=== PATIENT | male | born 1940 | race Hispanic/Latino ===

== ENCOUNTER → 2019-12-18 | Outpatient (CLI) | payer MEDICARE ==
[~2019-12-18] MED LIST: ATORVASTATIN CA10 MG PO; CARVEDILOL3.125 MG PO; CENTRUM SILVER1 EAC3 PO; DHEA TABLET1 EACH PO; FUROSEMIDE40 MG PO; HYDROCHLOROTH12.5 MG PO; LISINOPRIL10 MG PO; METFORMIN HCL500 MG PO; NIASPAN500 MG PO; OMEGA 3 FISH O1 EACH PO; XARELTO20 MG PO
--- NOTE | 2019-12-18 14:12 | Diagnostic Imaging Report ---
EXAM: Renal Ultrasound INDICATION: Chronic kidney disease COMPARISON: CT abdomen and pelvis of the same day TECHNIQUE: Transverse and longitudinal images of the kidneys and bladder were obtained. FINDINGS: Right Kidney: Length: 11.2 cm Appearance: Normal echogenicity. Collecting system: No hydronephrosis Stones: None Cyst/Mass: Lower pole anechoic simple cyst measures 2.7 x 2.1 x 2.5 cm. Left Kidney: Length: 10.5 cm Appearance: Normal echogenicity. Collecting system: No hydronephrosis Stones: None Cyst/Mass: None Bladder: No mass or calculi. Bilateral ureteral jets visualized. Prevoid volume estimate of 147 cc. The prostate measures 4.0 x 3.2 x 3.6 cm with volume estimate of 24 cc. IMPRESSION: No hydronephrosis or renal calculus. Right lower pole 2.7 cm simple cyst. Signed by: Shanelle Patricio MD on 12/18/2019 2:09 PM
--- NOTE | 2019-12-18 14:23 | Diagnostic Imaging Report ---
EXAM: CT Abdomen and Pelvis WITHOUT intravenous contrast INDICATION: Chronic kidney disease, Renal mass COMPARISON: None. TECHNIQUE: Abdomen and pelvis were scanned utilizing a multidetector helical scanner from the lung base to the pubic symphysis without administration of IV contrast. Coronal and sagittal reformations were obtained. IV CONTRAST: None ORAL CONTRAST: Water COMPLICATIONS: None RADIATION DOSE: Total DLP: 519 mGy*cm Dose modulation, iterative reconstruction, and/or weight based adjustment of the mA/kV was utilized to reduce the radiation dose to as low as reasonably achievable. FINDINGS: LOWER THORAX: ICD leads partially visualized. HEPATOBILIARY: No focal hepatic lesions. No biliary ductal dilatation. The gallbladder appears unremarkable. SPLEEN: No splenomegaly. PANCREAS: No focal masses or ductal dilatation. ADRENALS: No adrenal nodules. KIDNEYS/URETERS: No hydronephrosis, stones, or solid mass lesions. 2.4 cm right lower pole exophytic cyst. PELVIC ORGANS/BLADDER: Unremarkable. PERITONEUM / RETROPERITONEUM: No free air or fluid. LYMPH NODES: No lymphadenopathy. VESSELS: Moderate atherosclerotic calcifications of the nonaneurysmal abdominal aorta and major branches. GI TRACT: Diverticulosis without CT evidence of diverticulitis. No abnormal bowel thickening. No bowel obstruction. Normal appendix. BONES AND SOFT TISSUES: No acute osseous injury. No suspicious lytic or blastic lesions. Moderate degenerative changes of the visualized spine. IMPRESSION: No acute findings in the abdomen or pelvis. Specifically, no hydronephrosis, renal calculi, or solid renal mass lesion. 2.4 cm right lower pole exophytic renal cyst. Signed by: Shanelle Patricio MD on 12/18/2019 2:20 PM
== END ==
LOC: US 12:03
PROVIDERS: ATTEND Urology
DX: N18.9 Chronic kidney disease, unspecified (principal); D41.00 Neoplasm of uncertain behavior of unspecified kidney; N28.1 Cyst of kidney, acquired
CPT/HCPCS: 74176; 76770

== ENCOUNTER 2020-05-02 18:15 | Inpatient (IN) | payer MEDICARE ==
[~2020-05-02] VITALS: Ht 162.6 cm; Wt 78.7 kg
[2020-05-02 18:42] LABS: BASOPHILS % 0.4 % (0.0-1.0); EOSINOPHILS % 0.4 % (0.0-6.0); HEMATOCRIT 42.6 % (38.2-49.6); LYMPHOCYTES # (AUTO) 0.9 (1.0-3.2); LYMPHOCYTES % 10.8 % (18.0-39.1); MEAN CORPUSCULAR HEMOGLOBIN 30.4 pg (28-32); MEAN CORPUSCULAR HGB CONC 32.9 g/dL (31-35); MEAN CORPUSCULAR VOLUME 92.4 fL (81-99); MONOCYTES # (AUTO) 0.8 (0.2-0.8); MONOCYTES % 9.2 % (4.4-11.3); NEUTROPHILS # (AUTO) 6.7 (2.1-6.9); NEUTROPHILS % 78.6 % (38.7-80.0); PLATELET COUNT 181 x10e3/uL (140-360); RED BLOOD COUNT 4.61 x10e6/uL (4.3-5.7); RED CELL DISTRIBUTION WIDTH 16.1 % (11.7-14.4)
--- NOTE | 2020-05-02 18:42 | Emergency Department Note ---
History of Present Illnes History of Present Illness Chief Complaint: Respiratory History of Present Illness This is a 79 year old male presents via ems with report of respiratory distress, per ems initial o2 saturation 87%, ems reports was wheezing on right side, was given xopenex nebs times 2 by ems, solu-medrol 125 mg iv and started on cpap by ems, on arrival pt states feels much better and is not in distress at this time, states he has had increasing sob over past 4 to 5 days with a mild cough.. 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 Any updates have been documented here. Past Medical History Recent Fever: No Clinical Suspicion of Infectio: No New/Unexplained Change in Ment: No Past Medical History: Hypertension, CHF, CAD Past Surgical History: Pacer/AICD Social History Smoking Cessation: Former smoker Alcohol Use: None Any Illegal Drug Use: No Physically hurt or threatened: No Review of Systems Review of Systems Constitutional: Reports no symptoms EENTM: Reports no symptoms Cardiovascular: Reports no symptoms Respiratory: Reports as per HPI Gastrointestinal: Reports no symptoms Genitourinary: Reports no symptoms Musculoskeletal: Reports no symptoms Integumentary: Reports no symptoms Neurological: Reports no symptoms Psychological: Reports no symptoms Endocrine: Reports no symptoms Hematological/Lymphatic: Reports no symptoms Physical Exam Related Data Allergies: Coded Allergies: No Known Allergies (Unverified , 08/06/17) Triage Vital Signs Vital Signs Date Time Temp Pulse Resp B/P (MAP) Pulse Ox O2 Delivery O2 Flow Rate FiO2 05/02/20 18:23 99.2 107 38 107/79 100 Room Air 05/02/20 18:28 5.0 Vital signs reviewed: Yes Physical Exam CONSTITUTIONAL Constitutional: Present well-developed, Present well-nourished HENT HENT: Present normocephalic, Present atraumatic, Present oropharynx clear/moist, Present nose normal HENT L/R: Present left ext ear normal, Present right ext ear normal EYES Eyes: Reports PERRL, Reports conjunctivae normal NECK Neck: Present ROM normal PULMONARY Pulmonary: Present effort normal, Present breath sounds normal; Absent respiratory distress CARDIOVASCULAR Cardiovascular: Present regular rhythm, Present heart sounds normal, Present capillary refill normal, Present normal rate GASTROINTESTINAL Abdominal: Present soft, Present nontender, Present bowel sounds normal GENITOURINARY Genitourinary: Present exam deferred SKIN Skin: Present warm, Present dry MUSCULOSKELETAL Musculoskeletal: Present ROM normal NEUROLOGICAL Neurological: Present alert, Present oriented x 3, Present no gross motor or sensory deficits PSYCHOLOGICAL Psychological: Present mood/affect normal, Present judgement normal Results Laboratory Laboratory Laboratory Tests Test 05/02/20 19:43 05/02/20 18:24 White Blood Count 8.46 x10e3/uL (4.8-10.8) Red Blood Count 4.61 x10e6/uL (4.3-5.7) Hemoglobin 14.0 g/dL (14.0-18.0) Hematocrit 42.6 % (38.2-49.6) Mean Corpuscular Volume 92.4 fL (81-99) Mean Corpuscular Hemoglobin 30.4 pg (28-32) Mean Corpuscular Hemoglobin Concent 32.9 g/dL (31-35) Red Cell Distribution Width 16.1 % (11.7-14.4) Platelet Count 181 x10e3/uL (140-360) Neutrophils (%) (Auto) 78.6 % (38.7-80.0) Lymphocytes (%) (Auto) 10.8 % (18.0-39.1) Monocytes (%) (Auto) 9.2 % (4.4-11.3) Eosinophils (%) (Auto) 0.4 % (0.0-6.0) Basophils (%) (Auto) 0.4 % (0.0-1.0) Neutrophils # (Auto) 6.7 (2.1-6.9) Lymphocytes # (Auto) 0.9 (1.0-3.2) Monocytes # (Auto) 0.8 (0.2-0.8) Eosinophils # (Auto) 0.0 (0.0-0.4) Basophils # (Auto) 0.0 (0.0-0.1) Absolute Immature Granulocyte (auto 0.05 x10e3/uL (0-0.1) Prothrombin Time 31.9 seconds (11.9-14.5) Prothromb Time International Ratio 2.85 Activated Partial Thromboplast Time 44.1 seconds (23.8-35.5) Sodium Level 134 mmol/L (136-145) Potassium Level 4.1 mmol/L (3.5-5.1) Chloride Level 100 mmol/L (98-107) Carbon Dioxide Level 17 mmol/L (22-29) Anion Gap 21.1 mmol/L (8-16) Blood Urea Nitrogen 52 mg/dL (7-26) Creatinine 2.60 mg/dL (0.72-1.25) Estimat Glomerular Filtration Rate 24 ML/MIN (60-) BUN/Creatinine Ratio 20 (6-25) Glucose Level 161 mg/dL (74-118) Calcium Level 9.5 mg/dL (8.4-10.2) Total Bilirubin 1.7 mg/dL (0.2-1.2) Aspartate Amino Transf (AST/SGOT) 48 IU/L (5-34) Alanine Aminotransferase (ALT/SGPT) 50 IU/L (0-55) Alkaline Phosphatase 135 IU/L (40-150) Creatine Kinase 78 IU/L (30-200) Creatine Kinase MB 2.40 ng/mL (0-5.0) Troponin I 0.162 ng/mL (0-0.300) B-Type Natriuretic Peptide 1742.3 pg/mL (0-100) Total Protein 7.1 g/dL (6.5-8.1) Albumin 3.2 g/dL (3.5-5.0) Globulin 3.9 g/dL (2.3-3.5) Albumin/Globulin Ratio 0.8 (0.8-2.0) Lab results reviewed: Yes Imaging Imaging results reviewed: Yes Impressions Procedure: [id number] DX/CHEST SINGLE (PORTABLE) Exam Date: 05/02/20 Exam Time: 1840 REPORT STATUS: Signed EXAMINATION: CHEST SINGLE (PORTABLE) INDICATION: Shortness of breath. COMPARISON: None FINDINGS: TUBES and LINES: Cardiac pacing device which projects over the left chest wall. LUNGS: Normal lung volumes. There are prominent interstitial lung markings throughout both lungs. No focal consolidation. PLEURA: No pleural effusion or pneumothorax. HEART AND MEDIASTINUM: The heart is enlarged. The mediastinal silhouette is otherwise within normal limits with atherosclerotic calcification of the thoracic aortic arch. BONES AND SOFT TISSUES: No acute osseous lesion. Soft tissues are unremarkable. UPPER ABDOMEN: No free air under the diaphragm. IMPRESSION: Cardiomegaly with prominent interstitial lung markings which likely represents mild interstitial pulmonary edema. Signed by: Britni Stern MD on 05/02/2020 8:15 PM Dictated By: BRITNI STERN MD 14 Transcribed By: KATIE on 05/02/202014 COPY TO: RAMIRO COLON MD~ Procedures 12 Lead ECG Interpretation ECG Interpretation : ECG: ECG 1 Auto Accessories Installer: Interpreted by ED physician Date: May 02, 2020 Time: 18:59 Rhythm: ventricular fibrillation Ectopy: frequent PVC's Rate: tachycardia BPM: 119 ST segments normal: No T waves normal: No Other findings: no other findings Clinical Impression: abnormal ECG Additional Comments ELECTRONIC VENTRICULAR PACED RHYTHM WITH PVC'S Assessment & Plan Medical Decision Making MDM pt taken off cpap and placed on oxygen via nc at 5lpb, oxygen saturation 100% cbc, cmp, ekg, cardiac enzymes, covid 19, bnp, cxr ordered to eval for myocardial infarction, pneumonia, covid 19, electrolyte abnormality, pulmonary edema. I SPOKE WITH DR WEBER AND LEFT A MESSAGE FOR DR Roselyn LAUGHLIN COVERING FOR DR NARVAEZ. Assessment & Plan Final Impression: (1) CHF (congestive heart failure) (2) SOB (shortness of breath) Depart Disposition: ADMITTED Last Vital Signs Date Time Temp Pulse Resp B/P (MAP) Pulse Ox O2 Delivery O2 Flow Rate FiO2 05/02/20 18:28 98.8 107 22 107/79 100 Nasal Cannula 5.0 Home Meds Reported Medications Furosemide (FUROSEMIDE) 40 Mg Tablet, 40 MG PO Daily, #30 TAB 08/06/17 Carvedilol (CARVEDILOL) 3.125 Mg Tablet, 3.125 MG PO BID, #60 TAB 08/06/17 Atorvastatin Calcium (ATORVASTATIN CALCIUM) 10 Mg Tablet, 10 MG PO HS, #30 TAB 04/26/14 Rivaroxaban (XARELTO) 20 Mg Tablet, 20 MG PO DAILY 04/26/14 Metformin Hcl (METFORMIN HCL) 500 Mg Tablet, 500 MG PO DAILY, #60 TAB 04/26/14 RAMIRO COLON MD May 02, 2020 18:42
[2020-05-02 18:47] LABS: INR 2.85; PROTHROMBIN TIME 31.9 seconds (11.9-14.5)
[2020-05-02 18:48] LABS: PARTIAL THROMBOPLASTIN TIME 44.1 seconds (23.8-35.5)
[2020-05-02 18:57] LABS: ALBUMIN 3.2 g/dL (3.5-5.0); ALBUMIN/GLOBULIN RATIO 0.8 (0.8-2.0); ANION GAP 21.1 mmol/L (8-16); CALCIUM 9.5 mg/dL (8.4-10.2); CREATININE, SERUM 2.6 mg/dL (0.72-1.25); POTASSIUM 4.1 mmol/L (3.5-5.1)
[2020-05-02 19:03] LABS: CREATINE KINASE MB 2.4 ng/mL (0-5.0)
--- NOTE | 2020-05-02 19:20 | NUR ---
Seen pt on bed, awake & alert. Updated regarding in patient admission for tonight for further evaluation. Pt verbalizes understanding & agreed regarding his POC at this time.
--- NOTE | 2020-05-02 20:18 | Diagnostic Imaging Report ---
EXAMINATION: CHEST SINGLE (PORTABLE) INDICATION: Shortness of breath. COMPARISON: None FINDINGS: TUBES and LINES: Cardiac pacing device which projects over the left chest wall. LUNGS: Normal lung volumes. There are prominent interstitial lung markings throughout both lungs. No focal consolidation. PLEURA: No pleural effusion or pneumothorax. HEART AND MEDIASTINUM: The heart is enlarged. The mediastinal silhouette is otherwise within normal limits with atherosclerotic calcification of the thoracic aortic arch. BONES AND SOFT TISSUES: No acute osseous lesion. Soft tissues are unremarkable. UPPER ABDOMEN: No free air under the diaphragm. IMPRESSION: Cardiomegaly with prominent interstitial lung markings which likely represents mild interstitial pulmonary edema. Signed by: Guillermo Dubose MD on 05/02/2020 8:15 PM
--- NOTE | 2020-05-02 23:32 | NUR ---
Provided more warm blanket for comfort. No further complaints made at this time. VSS
[2020-05-03 02:04] LABS: CREATINE KINASE MB 2.5 ng/mL (0-5.0)
[2020-05-03] MEDS: FUROSEMIDE INJ 10 MG/ML 4 ML VIAL IV SCH ×3 (05:00→17:30)
--- NOTE | 2020-05-03 05:24 | NUR ---
H&P cc: sob and cough HPI: 79yoM, PCP , developed SOB and cough, found to have pulmonary interstitial edema, given lasix and admitted for mgmt. COVID testing result pending. PMH: HTN, HLD, CKD3 due to DM2, Xarelto use for PAD?, GERD, Hx cigs PSHx: PPM; shoulder; knee x2 Allergies; see emr Fh/SH; ; hx cigs; Meds; see MAR ROS: no f/c/s/N/V/D/BILL/dizziness/cp/confusion/vision chanes/ v/s; revd PE tired appearing anicteric ns1s2 reduced BS; soft nt nd no e/t skin dry flat affect awake; turner labs/meds revd A/P: 79yoM AECHF- echo; diuretics; f/u renal fn; Pulmonary edema- rec'd diuretic; O2 support Acute resp failure- NC O2 support KENNY in setting of CKD3- check renal U/S CKD3 due to DM2- f/u renal U/S; hab1c/lipids; ssi Hypotension- monitor with lasix ELevated LFTs- reassess Cardiomegaly- monitor BP; f/u echo HLD- statin Prop: cont AC; add pepcid dispo: f/u labs and echo; f/u cardio recs. f/u COVID testing; Adan Brasher MD, PhD.
[2020-05-03] MEDS ORDERED: DOCUSATE SODIUM 100 MG CAP PO PRN (05:30)
[2020-05-03] MEDS ORDERED: ONDANSETRON HCL INJ 2MG/ML 2ML 2 MG/ML VIAL IV PRN (05:30)
[2020-05-03] MEDS ORDERED: ACETAMINOPHEN 325 MG TAB PO PRN (05:30)
[2020-05-03] MEDS ORDERED: ZOLPIDEM TARTRATE 5 MG TAB PO PRN (05:30)
[2020-05-03 06:15] LABS: BASOPHILS % 0.1 % (0.0-1.0); HEMATOCRIT 37.1 % (38.2-49.6); HEMOGLOBIN 13.5 g/dL (14.0-18.0); LYMPHOCYTES # (AUTO) 0.5 (1.0-3.2); LYMPHOCYTES % 6.3 % (18.0-39.1); MEAN CORPUSCULAR HGB CONC 36.4 g/dL (31-35); MEAN CORPUSCULAR VOLUME 93.5 fL (81-99); MONOCYTES # (AUTO) 0.3 (0.2-0.8); MONOCYTES % 3.2 % (4.4-11.3); NEUTROPHILS # (AUTO) 7.8 (2.1-6.9); NEUTROPHILS % 89.9 % (38.7-80.0); PLATELET COUNT 132 x10e3/uL (140-360); RED BLOOD COUNT 3.97 x10e6/uL (4.3-5.7); RED CELL DISTRIBUTION WIDTH 17.5 % (11.7-14.4)
[2020-05-03 06:58] LABS: ANION GAP 16.6 mmol/L (8-16); CALCIUM 9.1 mg/dL (8.4-10.2); CREATININE, SERUM 2.35 mg/dL (0.72-1.25); POTASSIUM 3.6 mmol/L (3.5-5.1)
--- NOTE | 2020-05-03 07:02 | NUR ---
Handoff report given to Joesph HOLLOWAY
[2020-05-03 07:18] LABS: CHOL/HDL RATIO 3.9 (3.9-4.7); MAGNESIUM 1.5 MG/DL (1.3-2.1)
[2020-05-03 07:28] LABS: ALBUMIN 2.9 g/dL (3.5-5.0)
[2020-05-03] MEDS: FAMOTIDINE 20 MG TAB PO SCH ×2 (09:31→16:30)
[2020-05-03] MEDS: RIVAROXABAN 20 MG TABLET PO SCH (09:31)
[2020-05-03 10:15] VITALS: BP 92/75
--- NOTE | 2020-05-03 10:15 | NUR ---
PATIENT RECEIVED FROM ER PER WHEEL CHAIR, ASSISTED IN BED. ALERT AND VERBALLY RESPONSIVE. DENIED PAIN AT THIS TIME. SKIN WARM AND DRY TO TOUCH, RESPIRATION EVEN AND UNLABORED. ABDOMEN SOFT AND ROUND. O2 IN PLACE VIA N/C, TELEMETRY BOX [address] BED IN LOWER POSITION, CALL LIGHT AT REACH. INSTRUCTED TO CALL FOR ASSISTANCE NEEDED.
[2020-05-03 10:16] LABS: CREATINE KINASE MB 3.5 ng/mL (0-5.0)
--- NOTE | 2020-05-03 11:58 | Diagnostic Imaging Report ---
EXAM: Renal Ultrasound INDICATION: Shortness of breath, CHF COMPARISON: None TECHNIQUE: Transverse and longitudinal images of the kidneys and bladder were obtained. FINDINGS: Right Kidney: Length: 10.4 cm Appearance: Normal echogenicity. Collecting system: No hydronephrosis Stones: Lower pole exophytic anechoic simple cyst measures up to 2.7 cm. Cyst/Mass: None Left Kidney: Length: 11.1 cm Appearance: Normal echogenicity. Collecting system: No hydronephrosis Stones: None Cyst/Mass: None Bladder: No mass or calculi. Ureteral jets not visualized. Prevoid volume estimate of 160 cc. Prostate not optimally visualized due to bowel gas but within normal size limits. IMPRESSION: No hydronephrosis or renal calculi. Right lower pole simple cyst. Signed by: Shanelle Patricio MD on 05/03/2020 11:55 AM
[2020-05-03 12:00] VITALS: BP 89/68
[2020-05-03] MEDS: INSULIN REGULAR, HUMAN 100 UNIT/1 ML 3ML VIAL SQ SCH ×3 (13:00→20:51)
[2020-05-03] MEDS ORDERED: DEXTROSE 50% SYRINGE 50 ML IV PRN (13:00)
--- NOTE | 2020-05-03 13:54 | Consultation ---
DATE OF CONSULTATION: Cardiology Consultation REASON FOR CONSULTATION: Shortness of breath. HISTORY OF PRESENT ILLNESS: This is a 79-year-old man with a history of chronic systolic congestive heart failure status post ICD, hypertension, diabetes mellitus, paroxysmal atrial fibrillation, and diabetes mellitus, who presented to the emergency room with progressively worsening shortness of breath, diarrhea, lethargy, and irregular heart rate. EMS noted hypoxia, was started on oxygen therapy and given breathing treatments. The patient is feeling better. Denies any ongoing chest pain or palpitations currently. PAST MEDICAL HISTORY: As stated above. PAST SURGICAL HISTORY: None recent. PAST FAMILY HISTORY: Noncontributory to current illness. ALLERGIES: NO KNOWN DRUG ALLERGIES. MEDICATIONS: See medication reconciliation form. PHYSICAL EXAMINATION: VITAL SIGNS: Temperature is 97.8, heart rate is 90, respirations are 22, blood pressure is 104/76, and oxygen saturation 100% on 2 L nasal cannula. GENERAL: Well appearing, well built, no apparent distress. Alert and oriented x3. HEAD: Normocephalic and atraumatic. EYES: The extraocular movements intact. Conjunctivae clear. NECK: No JVD. No bruits. CARDIOVASCULAR: Regular rate and rhythm. LUNGS: Clear to auscultation. ABDOMEN: Soft, nontender, and nondistended. EXTREMITIES: No clubbing, cyanosis, or edema. VASCULAR: 2+ pulses. SKIN: Warm, dry, and intact. NEUROLOGIC: No focal deficits noted. LABORATORY DATA: Reviewed. Hemoglobin is 13.5. Sodium 134 and creatinine is 2.35. AST is 46 and ALT is 56. Troponin is 0.085. Chest x-ray shows cardiomegaly with interstitial lung markings. IMPRESSION: 1. Fhxoe-nb-ptexhyf systolic congestive heart failure. 2. Paroxysmal atrial fibrillation. 3. Hypertension. 4. Shortness of breath. 5. Hypoxia with respiratory failure. RECOMMENDATIONS: Continue diuresis with Lasix 40 mg IV q.12 hours. He is on anticoagulation for his atrial fibrillation. Resume optimal medical therapy for his heart failure. Check a 2D echocardiogram. We will continue to follow along with the patient. Benny Mora DO BM/MODL /[id number]
[2020-05-03 16:00] VITALS: BP 108/86
--- NOTE | 2020-05-03 16:15 | NUR ---
PATIENT NOTED WITH ELEVATED BLOOD SUGAR. MD NOTIFIED, NEW ORDER RECEIVED AND IMPLEMENTED. WILL CLOSELY MONITOR.
[2020-05-03 19:27] LABS: CREATINE KINASE MB 4.5 ng/mL (0-5.0)
[2020-05-03 20:00] VITALS: BP 99/73
[2020-05-03] MEDS: ATORVASTATIN 10 MG TAB PO SCH (20:51)
[2020-05-03 22:58] VITALS: BP 99/73
[2020-05-04] VITALS (8 sets, daily range): BP systolic 95–121; BP diastolic 73–95
[2020-05-04] MEDS: INSULIN REGULAR, HUMAN 100 UNIT/1 ML 3ML VIAL SQ SCH ×4 (07:30→20:23)
--- NOTE | 2020-05-04 08:10 | NUR ---
IM- progress note O/N see below ROS: no f/c/s/N/V/D/BILL/dizziness/cp/confusion/vision chanes/ v/s; revd PE tired appearing anicteric ns1s2 reduced BS; soft nt nd no e/t skin dry flat affect awake; turner labs/meds revd A/P: 79yoM AECHF- echo; diuretics; f/u renal fn; Pulmonary edema- rec'd diuretic; O2 support Acute resp failure- NC O2 support KENNY in setting of CKD3- check renal U/S CKD3 due to DM2- f/u renal U/S; hab1c/lipids; ssi Hypotension- monitor with lasix ELevated LFTs- reassess Cardiomegaly- monitor BP; f/u echo HLD- statin Prop: cont AC; add pepcid dispo: f/u labs and echo; f/u cardio recs. I/O 730/875; f/u COVID testing; 7- COVID negative; f/u echo; continue supportive care; Adan Brasher MD, PhD.
[2020-05-04] MEDS: FUROSEMIDE INJ 10 MG/ML 4 ML VIAL IV SCH ×2 (08:38→17:00)
[2020-05-04] MEDS: RIVAROXABAN 20 MG TABLET PO SCH (08:38)
[2020-05-04] MEDS: FAMOTIDINE 20 MG TAB PO SCH ×2 (08:38→17:00)
--- NOTE | 2020-05-04 09:30 | NUR ---
Exerted patient on room air SPO2 84%. Placed patient back on 3L NC. SPO2 93% Addendum: 05/04/20 at 1459 by TRISTAN FLORES RN error
[2020-05-04] MEDS: CARVEDILOL 3.125 MG TAB PO SCH ×2 (12:45→17:00)
--- NOTE | 2020-05-04 12:54 | Progress Note ---
DATE: Cardiology Progress Note SUBJECTIVE: The patient reports improvement in shortness of breath. No chest pain. OBJECTIVE: VITAL SIGNS: Temperature is 97.5, heart rate is ranging from 98 to 106, oxygen saturation is 100% on 2 L nasal cannula, respiratory rate is 20, and blood pressure is 114/81. GENERAL: Well appearing, in no apparent distress. CARDIOVASCULAR: Irregularly irregular. Tachycardic. LUNGS: Diminished breath sounds at bases. ABDOMEN: Soft, nontender, and nondistended. EXTREMITIES: Trace edema. CARDIOVASCULAR MEDICATIONS: Reviewed. LABORATORY DATA: Reviewed. Telemetry monitoring reveals atrial fibrillation. Echocardiogram showed severely decreased left ventricular ejection fraction less than 20%. IMPRESSION: 1. Hwdgj-jq-yzklsax kidney disease. 2. Rpjcx-ki-vzluffq systolic congestive heart failure. 3. Atrial fibrillation. 4. Hypertension. 5. Respiratory failure with hypoxia. RECOMMENDATIONS: Continue current diuresis of Lasix 40 mg IV q.12 hours. Continue Xarelto for his anticoagulation. Echocardiogram reviewed and shows severe left ventricular systolic function. No SARKIS inhibitor or ARBs due to renal failure. We will restart carvedilol. We will continue to follow along with you. Benny Mora DO BM/MODL /[id number]
--- NOTE | 2020-05-04 14:20 | NUR ---
Dr. Brasher, Therapy was ordered yesterday and PT eval completed. Patient did well and therapy was discontinued. Here is a copy from the PT's notes: PT Treatment Plan DC Skilled PT PATIENT ASSESSMENT . Assessment Patient with good tolerance to PT. He demonstrates good strength, activity tolerance, gait, balance and transfers. Patient ambulated 120 ft with rolling walker and was overall steady and safe. No loss of balance noted. Spo2 maintained 100% on room air during gait. Patient has met all functional goals. Instructed patient to continue to ambulate 2-3 times per day with supervision from RN. He acknowledged. Will discharge from PT. Left upright in bed with all needs met. 1.5L of O2. Call light within reach. RN notified of assessment. DISCHARGE PLAN . Location Home Thank you, Halima Davidson, PT Addendum: 05/04/20 at 1422 by Halima Davidson PT Amended: Links added.
--- NOTE | 2020-05-04 14:42 | NUR ---
Patient states "I feel chills and my legs feel still. I think it was the medication you gave me earlier." BP 120/69, P108, R20, T97.8, SPO2 100%. Paged of patient's concern. Waiting for call back
--- NOTE | 2020-05-04 15:31 | NUR ---
Nutrition Screen Note RD Recommendation for Physician: -Recommend cardiac/diabetic diet Plan of Care: RD following, monitoring for tolerance and adequacy Nutrition reason for involvement: Diagnosis - CHF Primary Diagnose(s): CHF, SOB PMH: CHF, hypertension, diabetes, afib Ht:64 in Wt: 171.5 lb BMI: 29.4 kg/m2 IBW: [address] Assessment: (05/04/20) Chart reviewed. Labs and meds reviewed. Pt is a 79 year old male admitted with CHF and SOB. It is recorded that pt consumed 100% of dinner yesterday. No reports of recent unintentional weight loss or decreased appetite prior to admission per chart. Will continue to monitor. Current Diet: cardiac Malnutrition Evaluation (05/04/20) The patient does not meet criteria for a specified degree of malnutrition at this time. Will re-evaluate at follow-up as appropriate. Diet Education Needs Assessment: RD is available for diet education as needed Nutrition Care Level: low Signed: Catherine Cain RD, LD
--- NOTE | 2020-05-04 16:00 | NUR ---
aware of patient's concern. Orders received for labs to be drawn
--- NOTE | 2020-05-04 19:17 | NUR ---
Report given to oncoming nurse of patient's status. No s/s of acute distress noted. Side rails upx2, call light within reach.
[2020-05-04] MEDS: ATORVASTATIN 10 MG TAB PO SCH (20:37)
[2020-05-05] VITALS (10 sets, daily range): BP systolic 102–124; BP diastolic 72–84
--- NOTE | 2020-05-05 05:12 | NUR ---
o pain or discomfort report, resting comfortably in bed, requesting shower when sun comes up
--- NOTE | 2020-05-05 06:23 | NUR ---
telemetry reported at 06 that patient has 13 runs of Vtach, patient seen sleeping, no distress, easily awaken no distress noted, will advised MD for orders
--- NOTE | 2020-05-05 06:40 | NUR ---
IM- progress note O/N see below ROS: no f/c/s/N/V/D/BILL/dizziness/cp/confusion/vision chanes/ v/s; revd PE tired appearing anicteric ns1s2 reduced BS; soft nt nd no e/t skin dry flat affect awake; turner labs/meds revd A/P: 79yoM AECHF- echo; diuretics; f/u renal fn; Pulmonary edema- rec'd diuretic; O2 support Acute resp failure- NC O2 support KENNY in setting of CKD3- check renal U/S CKD3 due to DM2- f/u renal U/S; hab1c/lipids; ssi Hypotension- monitor with lasix ELevated LFTs- reassess Cardiomegaly- monitor BP; f/u echo HLD- statin Prop: cont AC; add pepcid dispo: f/u labs and echo; f/u cardio recs. I/O 730/875; f/u COVID testing; 05-04 COVID negative; f/u echo; continue supportive care; 05-05 Severe Systolic CHF LVEF <20%; pt has AICD; aceI/ARB C/I with renal dysfunction; but renal fn close to baseline; Net I/O -145; VTach overnight? cardio to review; hold d/c at this time; Adan Brasher MD, PhD.
--- NOTE | 2020-05-05 07:07 | NUR ---
MD GONZALEZ CONTACTED VIA TELEPHONE, MD Alize LAUGHLIN COVERING FOR MD, NOTIFIED OF PATIENT RUNNING 8 RUNS OF VTACH @ 0630 AND CURRENTLY IS PACED AT 113 HR, ADVISED ME THAT HE "WILL SEE PATIENT DURING ROUNDING TO KEEP HIM FOR NOW", PATIENT COVID NEGATIVE PENDING REMOVAL OFF UNIT TO MED-SURG FLOOR PER AUTO BODY REPAIR TEACHER, ENDORSED TO ZORAIDA RN ONCOMING SHIFT ABOUT VTACH EPISODE AND COVID RESULTS
--- NOTE | 2020-05-05 07:20 | NUR ---
PATIENT IN BED RESTING WITH NO S/S OF DISTRESS. URINAL EMPTIED AND CLEANSED. BED IN LOWER POSITION, CALL LIGHT AT REACH.
[2020-05-05] MEDS: INSULIN REGULAR, HUMAN 100 UNIT/1 ML 3ML VIAL SQ SCH ×4 (07:30→21:00)
[2020-05-05] MEDS: FAMOTIDINE 20 MG TAB PO SCH ×2 (07:45→16:30)
[2020-05-05] MEDS: FUROSEMIDE INJ 10 MG/ML 4 ML VIAL IV SCH ×2 (08:40→17:47)
[2020-05-05] MEDS: CARVEDILOL 3.125 MG TAB PO SCH (08:40)
[2020-05-05] MEDS: RIVAROXABAN 20 MG TABLET PO SCH (08:40)
--- NOTE | 2020-05-05 11:03 | NUR ---
RECEIVED REPORT FROM ZORAIDA HOLLOWAY.-PATIENT ARRIVED TO THE UNIT @ 1103. PATIENT IN STABLE CONDITION, NO S/S OF DISTRESS NOTED. TELEMETRY APPLIED. IV SITED ASYMPTOTIC AND PATENT, TRANSPARENT DRESSING C/D/I. BED IN LOWEST POSITION AND LOCKED, SIDE RAILS X 2 , NONSKID SOCKS APPLIED. CALL LIGHT WITHIN REACH.
--- NOTE | 2020-05-05 11:10 | NUR ---
PATIENT TRANSFERRED TO MED SURG 3 ROOM 293 PER WHEEL CHAIR. REPORT CALLED AND GIVEN TO RECEIVING NURSE. ALL PERSONAL ITEMS TAKEN WITH PATIENT.
[2020-05-05] MEDS: METOPROLOL SUCCINATE 25 MG TAB XL PO SCH ×2 (11:30→17:48)
[2020-05-05] MEDS ORDERED: DIGOXIN INJ 0.25 MG/ML 2 ML AMP IV ONE (11:50)
--- NOTE | 2020-05-05 12:33 | Progress Note ---
DATE: Cardiology Progress Note SUBJECTIVE: The patient found sleeping. Reports mild shortness of breath. No chest pain. OBJECTIVE: VITAL SIGNS: He is afebrile, heart rate is ranging from low 100s to 110s, respiratory rate is 20, blood pressure is 124/63, and oxygen saturation 98% on room air. GENERAL: Well appearing, no apparent distress. CARDIOVASCULAR: Irregularly irregular, tachycardic. LUNGS: Diminished breath sounds at bases. ABDOMEN: Soft, nontender, nondistended. EXTREMITIES: No clubbing, cyanosis, or edema. LABORATORY DATA: Reviewed. TELEMETRY: Monitoring showed atrial fibrillation with ventricular paced complexes and occasional premature ventricular complexes. IMPRESSION: 1. Atrial fibrillation with right ventricular response. 2. Acute on chronic systolic congestive heart failure. 3. Presence of implantable cardioverter-defibrillator. 4. Obesity. 5. Hypertension. 6. Hyperlipidemia. RECOMMENDATIONS: We will switch him to long-acting Toprol-XL from Coreg to ensure better heart rate reduction. We will give a dose of IV digoxin today. Otherwise, continue all current cardiovascular medications including his Xarelto for his atrial fibrillation. Please keep for one more day and monitor on telemetry. DO BELINDA Pennington/BRAULIOL /[id number]
--- NOTE | 2020-05-05 19:30 | NUR ---
BEDSIDE SHIFT REPORT RECEIVED FROM DAY RN. PT IS ALERT AND ORINETED X3. RESPIRATIONS ARE EVEN AND UNLABORED. REMAINS ON RA - O2 SAT 96%. HX SOB WITH EXERTION. TELE ON. PT HAS VPACED PACEMAKER. LBM 05/05. PT VOIDING IN BATHROOM. 18G RT AC SL INTACT WITH HEALTHY SITE. AWAITING DR GONZALEZ TO SEE PT.CALL LIGHT WITHIN REACH. BED LOCKED AND IN LOW POSITION.
--- NOTE | 2020-05-05 19:46 | NUR ---
COMPLETED BEDSIDE SHIFT REPORT WITH THE ONCOMING NIGHT NURSE. PATIENT IN STABLE CONDITION, NO S/S OF DISTRESS NOTED. TELEMETRY APPLIED. IV SITED ASYMPTOTIC AND PATENT, TRANSPARENT DRESSING C/D/I. BED IN LOWEST POSITION AND LOCKED, SIDE RAILS X 2 , NONSKID SOCKS APPLIED. CALL LIGHT WITHIN REACH.
[2020-05-05] MEDS: ATORVASTATIN 10 MG TAB PO SCH (21:49)
[2020-05-06 00:38] VITALS: BP 98/72
[2020-05-06 04:05] VITALS: BP 108/78
--- NOTE | 2020-05-06 06:49 | NUR ---
D/C summary Principal Dx: AECHF- echo; diuretics; f/u renal fn; Severe Systolic CHF VTach Pulmonary edema- rec'd diuretic; O2 support Acute resp failure- NC O2 support KENNY in setting of CKD3- check renal U/S ELevated LFTs- reassess Cardiomegaly- monitor BP; f/u echo Secondary Dx: CKD3 due to DM2- f/u renal U/S; hab1c/lipids; ssi Hypotension- monitor with lasix HLD- statin Prop: cont AC; add pepcid dispo: f/u labs and echo; f/u cardio recs. I/O 730/875; f/u COVID testing; 05-04 COVID negative; f/u echo; continue supportive care; 05-05 Severe Systolic CHF LVEF <20%; pt has AICD; aceI/ARB C/I with renal dysfunction; but renal fn close to baseline; Net I/O -145; VTach overnight? cardio to review; hold d/c at this time; 05-06 renal U/S onlyl simple cyst; check labs; d/c home on metoprolol; no lisinopril as C/I in worsening renal fn stable d/c>35mins d/c daughter on phone f/u pcp 2 days and cardiology 1 week Adan Brasher MD, PhD.
--- NOTE | 2020-05-06 07:00 | NUR ---
RECEIVED BEDSIDE SHIFT REPORT WITH OFF GOING NIGHT NURSE. PATIENT IN STABLE CONDITION, NO S/S OF DISTRESS NOTED. TELEMETRY APPLIED. IV SITE ASYMPTOMATIC AND PATENT, TRANSPARENT DRESSING C/D/I. BED ALARM APPLIED. BED IN LOWEST POSITION AND LOCKED, SIDE RAILS X2, NONSKID SOCKS APPLIED. CALL LIGHT WITHIN REACH.
[2020-05-06 07:19] LABS: BASOPHILS % 0.2 % (0.0-1.0); HEMOGLOBIN 15.1 g/dL (14.0-18.0); LYMPHOCYTES % 9.2 % (18.0-39.1); MEAN CORPUSCULAR HEMOGLOBIN 30.8 pg (28-32); MEAN CORPUSCULAR HGB CONC 34.3 g/dL (31-35); MEAN CORPUSCULAR VOLUME 89.8 fL (81-99); MONOCYTES # (AUTO) 0.8 (0.2-0.8); MONOCYTES % 7.6 % (4.4-11.3); NEUTROPHILS # (AUTO) 9.2 (2.1-6.9); NEUTROPHILS % 82.4 % (38.7-80.0); PLATELET COUNT 183 x10e3/uL (140-360); RED CELL DISTRIBUTION WIDTH 15.9 % (11.7-14.4)
[2020-05-06] MEDS: FAMOTIDINE 20 MG TAB PO SCH ×2 (07:30→17:58)
[2020-05-06] MEDS: INSULIN REGULAR, HUMAN 100 UNIT/1 ML 3ML VIAL SQ SCH ×3 (07:30→16:30)
[2020-05-06 07:37] LABS: ANION GAP 19.2 mmol/L (8-16); CALCIUM 8.8 mg/dL (8.4-10.2); CREATININE, SERUM 2.96 mg/dL (0.72-1.25); POTASSIUM 4.2 mmol/L (3.5-5.1)
[2020-05-06 08:19] VITALS: BP 100/71
[2020-05-06 08:25] VITALS: BP 100/71
[2020-05-06] MEDS: METOPROLOL SUCCINATE 25 MG TAB XL PO SCH ×2 (09:00→17:58)
[2020-05-06] MEDS: FUROSEMIDE INJ 10 MG/ML 4 ML VIAL IV SCH ×2 (09:35→17:58)
[2020-05-06] MEDS: RIVAROXABAN 20 MG TABLET PO SCH (09:42)
[2020-05-06 11:54] VITALS: BP 108/87
[2020-05-06 15:50] VITALS: BP 103/64
--- NOTE | 2020-05-06 17:00 | Progress Note ---
DATE: Cardiology Progress Note SUBJECTIVE: The patient feeling better. Less short of breath. No palpitations or chest pain. OBJECTIVE: VITAL SIGNS: Temperature is 97.5, heart rate is 94, respirations are 18, blood pressure is 108/87, and oxygen saturation is 100% on 2 L nasal cannula. GENERAL: He is a well-appearing, in no apparent distress. CARDIOVASCULAR: Irregularly irregular, normal rate. LUNGS: Diminished breath sounds at bases. ABDOMEN: Soft, nontender, obese. EXTREMITIES: Trace edema. LABORATORY DATA: Reviewed. TELEMETRY: Monitoring revealed ventricular paced rhythm, controlled ventricular rate. IMPRESSION: 1. Atrial fibrillation. 2. Presence of implantable cardioverter-defibrillator. 3. Iyniz-gr-areuvew systolic congestive heart failure. 4. Znycl-pj-dvslkyf kidney disease. 5. Obesity. 6. Hypertension. 7. Hyperlipidemia. RECOMMENDATIONS: The patient's heart rate is better controlled on Toprol-XL, which was started in place of carvedilol. He also received a dose of IV digoxin. Otherwise, continue all current cardiovascular medications including Xarelto for his atrial fibrillation. The patient is stable for discharge from a cardiovascular standpoint with close outpatient follow. DO BELINDA Pennington/BRAULIOL /[phone]
--- OUTSIDE RECORDS SUMMARY | 2020-05-06 19:00 | XMS REPORT | Continuity of Care Document ---
Author Author [facility] t Organization [facility] Address [address] [place] [address] Phone Unavailable Care Team Providers Care Shop Helper Name Role Phone EVELINA WEBER Attphys Unavailable HAMPELWILLIE Attphys Unavailable EVELINA WEBER Admphys Unavailable Problems This patient has no known problems. Allergies, Adverse Reactions, Alerts This patient has no known allergies or adverse reactions. Medications This patient has no known medications. Procedures This patient has no known procedures. Results Test Description Test Time Test Comments Results Result Comments Source US RENAL RETROPERITONEAL COMP 2020-05-03 11:53:[address] [address] Patient Name: JILLIAN SALINAS MR #: [id number] : 1940 Age/Sex: 79/M Req #: [id number] [facility] Physician: EVELINA WEBER MD Ordered by: EVELINA WEBER MD Report #: [id number] Location: [facility] Room/Bed: [place] [address] Procedure: [id number] US/US RENAL RETROPERITONEAL COMP Exam Date: Exam Time: REPORT STATUS: Signed EXAM: Renal Ultrasound INDICATION: Shortness of breath, CHF COMPARISON: None TECHNIQUE: Transverse and longitudinal images of the kidneys and bladder were obtained. FINDINGS: Right Kidney: Length: 10.4 cm Appearance: Normal echogenicity. Collecting system: No hydronephrosis Stones: Lower pole exophytic anechoic simple cyst measures up to 2.7 cm. Cyst/Mass: None Left Kidney: Length: 11.1 cm Appearance: Normal echogenicity. Collecting system: No hydronephrosis Stones: None Cyst/Mass: None Bladder: No mass or calculi. Ureteral jets not visualized. Prevoid volume estimate of 160 cc. Prostate not optimally visualized due to bowel gas but within normal size limits. IMPRESSION: No hydronephrosis or renal calculi. Right lower pole simple cyst. Signed by: Charles Camejo MD on 05/03/2020 11:55 AM Dictated By: CHARLES CAMEJO MD 115 Transcribed By: KATIE on 05/03/20 115 COPY TO: EVELINA WEBER MD CHEST SINGLE (PORTABLE) 2020-05-02 20:13:00 [place] [address] Patient Name: JILLIAN SALINAS MR #: [id number] : 1940 Age/Sex: 79/M Req #: [id number] Adm Physician: Ordered by: RAMIRO COLON MD Report #: [id number] Location: ER Room/Bed: Procedure: [id number] DX/CHEST SINGLE (PORTABLE) Exam Date: 05/02/20 Exam Time: 1840 REPORT STATUS: Signed EXAMINATION: CHEST SINGLE (PORTABLE) INDICATION: Shortness of breath. COMPARISON: None FINDINGS: TUBES and LINES: Cardiac pacing device which projects over the left chest wall. LUNGS: Normal lung volumes. There are prominent interstitial lung markings throughout both lungs. No focal consolidation. PLEURA: No pleural effusion or pneumothorax. HEART AND MEDIASTINUM: The heart is enlarged. The mediastinal silhouette is otherwise within normal limits with atherosclerotic calcification of the thoracic aortic arch. BONES AND SOFT TISSUES: No acute osseous lesion. Soft tissues are unremarkable. UPPER ABDOMEN: No free air under the diaphragm. IMPRESSION: Cardiomegaly with prominent interstitial lung markings which likely represents mild interstitial pulmonary edema. Signed by: Britni Stern MD on 05/02/2020 8:15 PM Dictated By: BRITNI STERN MD 14 Transcribed By: KATIE on 05/02/202014 COPY TO: RAMIRO COLON MD CT ABDOMEN/PELVIS WO 2019-12-18 14:10:00 [place] [address] Patient Name: JILLIAN SALINAS MR #: [id number] : 1940 Age/Sex: 78/M Req #: [id number] Adm Physician: Ordered by: WILLIE CURIEL MD Report #: [id number] Location: Room/Bed: Procedure: [id number] CT/CT ABDOMEN/PELVIS WO Exam Date: 12/18/19 Exam Time: 1335 REPORT STATUS: Signed EXAM: CT Abdomen and Pelvis WITHOUT intravenous contrast INDICATION: Chronic kidney disease, Renal mass COMPARISON: None. TECHNIQUE: Abdomen and pelvis were scanned utilizing a multidetector helical scanner from the lung base to the pubic symphysis without administration of IV contrast. Coronal and sagittal reformations were obtained. IV CONTRAST: None ORAL CONTRAST: Water COMPLICATIONS: None RADIATION DOSE: Total DLP: 519 mGy*cm Dose modulation, iterative reconstruction, and/or weight based adjustment of the mA/kV was utilized to reduce the radiation dose to as low as reasonably achiev able. FINDINGS: LOWER THORAX: ICD leads partially visualized. HEPATOBILIARY: No focal hepatic lesions. No biliary ductal dilatation. The gallbladder appears unremarkable. SPLEEN: No splenomegaly. PANCREAS: No focal masses or ductal dilatation. ADRENALS: No adrenal nodules. KIDNEYS/URETERS: No hydronephrosis, stones, or solid mass lesions. 2.4 cm right lower pole exophytic cyst. PELVIC ORGANS/BLADDER: Unremarkable. PERITONEUM / RETROPERITONEUM: No free air or fluid. LYMPH NODES: No lymphadenopathy. VESSELS: Moderate atherosclerotic calcifications of the non aneurysmal abdominal aorta and major branches. GI TRACT: Diverticulosis without CT evidence of diverticulitis. No abnormal bowel thickening. No bowel obstruction. Normal appendix. BONES AND SOFT TISSUES: No acute osseous injury. No suspicious lytic or blastic lesions. Moderate degenerative changes of the visualized spine. IMPRESSION: No acute findings in the abdomen or pelvis. Specifically, no hydronephrosis, renal calculi, or solid renal mass lesion. 2.4 cm right lower pole exophytic renal cyst. Signed by: Charles Camejo MD on 12/18/2019 2:20 PM Dictated By: CHARLES CAMEJO MD 1420 Transcribed By: KATIE on 12/18/19 1420 COPY TO: WILLIE CURIEL MD RENAL RETROPERITONEAL COMP 2019-12-18 14:07:00 [place] [address] Patient Name: JILLIAN SALINAS MR #: [id number] : 1940 Age/Sex: 78/M Req #: [id number] Adm Physician: Ordered by: WILLIE CURIEL MD Report #: [id number] Location: US Room/Bed: Procedure: [id number] US/US RENAL RETROPERITONEAL COMP Exam Date: 12/18/19 Exam Time: 1254 REPORT STATUS: Signed EXAM: Renal Ultrasound INDICATION: Chronic kidney disease COMPARISON: CT abdomen and pelvis of the same day TECHNIQUE: Transverse and longitudinal images of the kidneys and bladder were obtained. FINDINGS: Right Kidney: Length: 11.2 cm Appearance: Normal echogenicity. Collecting system: No hydronephrosis Stones: None Cyst/Mass: Lower pole anechoic simple cyst measures 2.7 x 2.1 x 2.5 cm. Left Kidney: Length: 10.5 cm Appearance: Normal echogenicity. Collecting system: No hydronephrosis Stones: None Cyst/Mass: None Bladder: No mass or calculi. Bilateral ureteral jets visualized. Prevoid volume estimate of 147 cc. The prostate measures 4.0 x 3.2 x 3.6 cm with volume estimate of 24 cc. IMPRESSION: No hydronephrosis or renal calculus. Right lower pole 2.7 cm simple cyst. Signed by: Charles Camejo MD on 12/18/2019 2:09 PM Dictated By: CHARLES CAMEJO MD 1406 Transcribed By: KATIE on 12/18/191408 COPY TO: WILLIE CURIEL MD
--- OUTSIDE RECORDS SUMMARY | 2020-05-06 19:06 | XMS REPORT | Continuity of Care Document ---
Author Author [facility] t Organization [facility] Address [address] [place] [phone] Phone Unavailable Care Team Providers Care Carpenter Assembler Name Role Phone EVELINA WEBER Attphys Unavailable [...] Source US RENAL RETROPERITONEAL COMP 2020-05-03 11:53:[address] [address] Patient Name: JILLIAN SLAINAS MR #: [id number] : 1940 Age/Sex: 79/M Req #: [id number] [facility] Physician: EVELINA WEBER MD Ordered by: EVELINA WEBER MD Report #: [id number] Location: [facility] Room/Bed: [place] [address] Procedure: [id number] US/US RENAL RETROPERITONEAL COMP Exam Date: Exam [...] WEBER MD CHEST SINGLE (PORTABLE) 2020-05-02 20:13:00 [place] [address] Patient Name: JILLIAN SALINAS MR #: [id number] : 1940 Age/Sex: 79/M Req #: [id number] Adm Physician: Ordered by: RAMIRO COLON MD Report #: [id number] Location: ER Room/Bed: Procedure: [id number] DX/CHEST SINGLE (PORTABLE) Exam Date: 05/02/20 Exam [...] COLON MD CT ABDOMEN/PELVIS WO 2019-12-18 14:10:00 [place] [address] Patient Name: JILLIAN SALINAS MR #: [id number] : 1940 Age/Sex: 78/M Req #: [id number] Adm Physician: Ordered by: WILLIE CURIEL MD Report #: [id number] Location: Room/Bed: Procedure: [id number] CT/CT ABDOMEN/PELVIS WO Exam Date: 12/18/19 Exam [...] CURIEL MD RENAL RETROPERITONEAL COMP 2019-12-18 14:07:00 [place] [address] Patient Name: JILLIAN SALINAS MR #: [id number] : 1940 Age/Sex: 78/M Req #: [id number] Adm Physician: Ordered by: WILLIE CURIEL MD Report #: [id number] Location: US Room/Bed: Procedure: [id number] US/US RENAL RETROPERITONEAL COMP Exam Date: 12/18/19 [...] 2:09 PM Dictated By: CHARLES CAMEJO MD 1403 Transcribed By: KATIE on 12/18/191408 COPY TO: WILLIE CURIEL MD
--- NOTE | 2020-05-06 20:00 | NUR ---
DISCHARGED PATIENT HOME WITH ALL PRESCRIPTION, PAPERWORK AND BELONGINGS. VITAL SIGN TABLE AT THIS TIME.
== END 2020-05-06 20:06 | disposition home or self-care (01) | DRG 291 ==
LOC: ER 18:30 → ERHOLD 21:27 → IMCU 05-03 10:04 → MED/SURG3 05-05 10:55
PROVIDERS: ADMIT Internal Medicine; ATTEND Internal Medicine
DX: I13.0 Hypertensive heart and chronic kidney disease with heart failure and stage 1 through stage 4 chronic kidney disease, or unspecified chronic kidney disease (principal); J96.91 Respiratory failure, unspecified with hypoxia; I50.23 Acute on chronic systolic (congestive) heart failure; N17.9 Acute kidney failure, unspecified; E11.9 Type 2 diabetes mellitus without complications; Z95.810 Presence of automatic (implantable) cardiac defibrillator; I48.0 Paroxysmal atrial fibrillation; Z79.01 Long term (current) use of anticoagulants; E78.5 Hyperlipidemia, unspecified; E66.9 Obesity, unspecified; Z68.29 Body mass index [BMI] 29.0-29.9, adult; N18.9 Chronic kidney disease, unspecified; Z11.59 Encounter for screening for other viral diseases
CPT/HCPCS: 36415; 71045; 76770; 80048; 80053; 80061; 80076; 82550; 82553; 82948; 83036; 83735; 83880; 84132; 84484; 85025; 85610; 85730; 93005; 93306; 97139; 99285; J1160; J1817; J1940; J2405; U0002